=== PATIENT | female | born 1965 | race Two or more races ===

== ENCOUNTER 2025-08-10 02:01 | Inpatient (IN) | payer OTHER ==
[~2025-08-10] VITALS: Ht 165.1 cm; Wt 63.5 kg
[2025-08-10] MEDS ORDERED: CARAFATE1 GM PO (02:14)
[2025-08-10] MEDS ORDERED: PROTONIX40 MG PO (02:14)
[2025-08-10] MEDS ORDERED: NEURONTIN800 MG PO (02:15)
[2025-08-10] MEDS ORDERED: EFFEXOR XR37.5 MG PO (02:15)
[2025-08-10] MEDS ORDERED: SEROQUEL25 MG PO (02:15)
--- NOTE | 2025-08-10 02:17 | NUR ---
PACIENTE ALERTA Y ORIENTADA X3. REFIERE VENIR POR DOLOR ABDOMINAL Y DOLOR DE ESPALDA. SE ESTIMAN VITALES Y SE UBICA.
[2025-08-10] MEDS ORDERED: ORPHENADRINE CITRATE 30 MG/ML AMPUL IM ONE (02:30)
[2025-08-10] MEDS ORDERED: ONDANSETRON HCL 4 MG in 0.9 % SODIUM CHLORIDE 50 ML IV ONE (02:30)
[2025-08-10] MEDS ORDERED: 0.9 % SODIUM CHLORIDE 500 ML IV ONE (02:30)
[2025-08-10] MEDS ORDERED: KETOROLAC TROMETHAMINE 30 MG VIAL IU ONE (02:30)
[2025-08-10] MEDS ORDERED: DEXAMETHASONE SODIUM PHOSPHATE 4 MG/ML VIAL IV ONE (02:30)
[2025-08-10] MEDS ORDERED: FAMOtidine 10 MG/ML (4ML VIAL) IV PUSH ONE (02:30)
[2025-08-10] MEDS ORDERED: ORPHENADRINE CITRATE 30 MG/ML AMPUL ONE (02:41)
[2025-08-10] MEDS ORDERED: DEXAMETHASONE SODIUM PHOSPHATE 4 MG/ML VIAL ONE (02:41)
[2025-08-10] MEDS ORDERED: KETOROLAC TROMETHAMINE 30 MG VIAL ONE ×2 (02:41→10:58)
[2025-08-10] MEDS ORDERED: ONDANSETRON HCL 2 MG/ML VIAL ONE (02:41)
[2025-08-10] MEDS ORDERED: FAMOTIDINE/PF 20 MG/2 ML VIAL ONE (02:42)
--- NOTE | 2025-08-10 03:04 | NUR ---
SE ORIENTA PTE SOBRE TX, REFIERE ENTENDER Y ACEPTAR. SE LE ABRAHAM MUESTRAS DE LABORATORIO, SE CANALIZA Y SE ADMINISTRAN MEDICAMENTOS MELONY ORDEN MEDICA. PTE TOLERA.
[2025-08-10 03:05] LABS: BASO % 0.9 % (0.1-1.2); EOS # 0.05 (0.04-0.54); EOS % 0.9 % (0.7-7.0); LYMPH # 1.95 (1.18-3.74); LYMPH % 33.6 % (19.3-53.1); MEAN PLATELET VOLUME 10.10 fl (9.4-12.4); MONO # 0.54 (0.24-0.82); MONO % 9.3 % (4.7-12.5); NEUT # 3.20 (1.56-6.13); NEUT % 55.0 % (34.0-71.1); RED CELL DISTRIBUTION WIDTH 13.1 % (11.6-14.4)
[2025-08-10 03:20] LABS: ALT/SGPT 43.0 U/L (12-78); AST/SGOT 39.0 U/L (15-37); BILIRUBIN TOTAL 0.67 mg/dL (0.3-1.2); BUN CREA RATIO 9.0 (7.0-25.0); CREATININE SERUM 0.8 mg/dL (0.55-1.02); GFR 73.67; GLOBULINA 2.2 G/DL (2.4-3.5); GLUCOSE FASTING 107.0 mg/dL (65-100); OSMOLALITY SERUM 285.0 MOSM/KG (275-295)
[2025-08-10] MEDS ORDERED: NORFLEX100MG PO (05:20)
[2025-08-10] MEDS ORDERED: KETO10TA2 PO (05:20)
[2025-08-10] MEDS ORDERED: PEPCID AC20 MG PO (05:20)
--- NOTE | 2025-08-10 05:40 | NUR ---
PACIENTE CON ORDENES DE INGRID, AL PASAR AL AREA DE IAN PACIENTE DORMIDA. SE DESPIERTA PARA ORIENTAR DE PROCESO DE INGRID Y LA MISMA REFIERE CONTINUAR CON DOLOR ABDOMINAL. SE NOTIFICA DR Michelle PALOMO. BETINA PASA A RE EVALUAR A PACIENTE Y LE INDICA QUE LE ORDENARA CT.
[2025-08-10] MEDS ORDERED: MORPHINE SULFATE 4 MG/ML CARTRIDGE IV ONE (05:45)
[2025-08-10] MEDS ORDERED: DIATRIZOATE MEGLUMINE, SODIUM 30 ML BOTTLE ONE (08:28)
--- NOTE | 2025-08-10 08:33 | NUR ---
SE REALIZA EKG, SE EFREN MUESTRA DE LABORATORIO [place]. PENDIENTE A PLACA. SE NEFTALY CONTRASTE ORAL Y SE ORIENTA SOBRE LA NENA MALDONADO
[2025-08-10] MEDS ORDERED: PANTOPRAZOLE SODIUM 40 MG/VIAL VIAL IV STA (08:36)
[2025-08-10 10:09] LABS: INR 0.98
[2025-08-10] MEDS ORDERED: KETOROLAC TROMETHAMINE 30 MG VIAL IV ONE (11:00)
[2025-08-10] MEDS ORDERED: CIPROFLOXACIN IN 5 % DEXTROSE 200 ML IV SCH (17:15)
[2025-08-10] MEDS ORDERED: 0.9 % SODIUM CHLORIDE 1,000 ML IV SCH (17:15)
[2025-08-10] MEDS ORDERED: PANTOPRAZOLE SODIUM 40 MG in 0.9 % SODIUM CHLORIDE 8 ML IV PUSH SCH (17:17)
[2025-08-10] MEDS ORDERED: ONDANSETRON HCL 4 MG in 0.9 % SODIUM CHLORIDE 50 ML IV PRN (17:30)
[2025-08-10] MEDS ORDERED: MORPHINE SULFATE 2 MG/ML SYRINGE IV PRN (17:30)
[2025-08-10 17:45] VITALS: BP 134/62; O2SAT 98
[2025-08-10] MEDS ORDERED: LORazepam 2 MG/ML VIAL IV PRN (18:00)
[2025-08-11 01:33] VITALS: BP 80/46; O2SAT 98
[2025-08-11] MEDS ORDERED: 0.9 % SODIUM CHLORIDE 10 ML VIAL IJ ONE (07:25)
[2025-08-11 09:28] VITALS: BP 98/55; O2SAT 96
[2025-08-11] MEDS ORDERED: LIDOCAINE HCL 1%/EPINEPHRINE 20ML VIAL IJ ONE (20:24)
[2025-08-11] MEDS ORDERED: BUPIVACAINE HCL/MPF 0.5% 30ML VIAL ONE (20:24)
[2025-08-12] MEDS ORDERED: ONDANSETRON HCL 2 MG/ML VIAL ONE (00:20)
[2025-08-12] MEDS ORDERED: METOCLOPRAMIDE HCL 5 MG/ML VIAL IV SCH (01:00)
[2025-08-12] MEDS ORDERED: KETOROLAC TROMETHAMINE 60 MG VIAL IM ONE (01:47)
[2025-08-12] MEDS ORDERED: METRONIDAZOLE/SODIUM CHLORIDE 500 MG/100 ML PIGGYBACK IV ONE (03:29)
[2025-08-12 03:54] VITALS: BP 107/68; O2SAT 95
[2025-08-12] MEDS ORDERED: 0.9 % SODIUM CHLORIDE 1,000 ML IV SCH (04:00)
[2025-08-12] MEDS ORDERED: KETOROLAC TROMETHAMINE 30 MG VIAL IV PRN (09:00)
[2025-08-12] MEDS ORDERED: ONDANSETRON HCL 2 MG/ML VIAL IV PRN (09:00)
[2025-08-12 11:30] LABS: BASO % 0.5 % (0.1-1.2); EOS # 0.04 (0.04-0.54); EOS % 0.5 % (0.7-7.0); LYMPH # 1.34 (1.18-3.74); LYMPH % 16.3 % (19.3-53.1); MEAN PLATELET VOLUME 10.00 fl (9.4-12.4); MONO # 0.47 (0.24-0.82); MONO % 5.7 % (4.7-12.5); NEUT # 6.30 (1.56-6.13); NEUT % 76.6 % (34.0-71.1); RED CELL DISTRIBUTION WIDTH 13.2 % (11.6-14.4)
[2025-08-12 12:10] LABS: BUN CREA RATIO 27.0 (7.0-25.0); CREATININE SERUM 0.44 mg/dL (0.55-1.02); GFR 146.87; GLUCOSE FASTING 72.0 mg/dL (65-100); OSMOLALITY SERUM 285.0 MOSM/KG (275-295)
[2025-08-12 13:40] VITALS: BP 100/57; O2SAT 96
[2025-08-12 16:35] VITALS: BP 101/66; O2SAT 95
[2025-08-13 01:57] VITALS: BP 107/64; O2SAT 96
[2025-08-13 08:00] VITALS: BP 106/60; O2SAT 97
== END 2025-08-13 15:34 | disposition home or self-care (01) | DRG 330 ==
LOC: ER 02:01 → EDBD 02:01 → ER 02:45 → SURH 17:40
PROVIDERS: General Practice; Physician Assistant Medical; Surgery; ADMIT Internal Medicine; ATTEND Internal Medicine
PROC: 0DS80ZZ Reposition Small Intestine, Open Approach (ICD-10-PCS; principal; 2025-08-10)
PROC: 0DNW0ZZ Release Peritoneum, Open Approach (ICD-10-PCS; 2025-08-10)
PROC: 0WQF0ZZ Repair Abdominal Wall, Open Approach (ICD-10-PCS; 2025-08-10)
PROC: BW21ZZZ Computerized Tomography (CT Scan) of Abdomen and Pelvis (ICD-10-PCS; 2025-08-10)
PROC: BW21YZZ Computerized Tomography (CT Scan) of Abdomen and Pelvis using Other Contrast (ICD-10-PCS; 2025-08-10)
DX: K56.2 Volvulus (principal); Q43.3 Congenital malformations of intestinal fixation; R18.8 Other ascites; K46.9 Unspecified abdominal hernia without obstruction or gangrene